=== PATIENT | female | born 1975 | race African-American/Black ===

== ENCOUNTER 2016-09-27 06:56 | Inpatient (IN) | payer MEDICAID ==
[~2016-09-27] VITALS: Ht 160 cm; Wt 130.0 kg
[~2016-09-27 06:56] MED LIST: AML5T PO; ASPI-378 PO; LISI-285 PO; NITR0.4S29 SL; OMEP20CA5 PO; SIMV-8 PO
[2016-09-27] MEDS ORDERED: SODIUM CHLORIDE 0.9% 1,000 ML IV ONE (07:42)
[2016-09-27] MEDS ORDERED: MORPHINE SULF INJ 2 MG/ML SYRINGE 1ML IV ONE (07:45)
[2016-09-27] MEDS ORDERED: LORazepam 2MG/ML-1ML VIAL IV ONE (07:45)
[2016-09-27] MEDS ORDERED: ONDANSETRON HCL 4 MG/2 ML VIAL IV ONE (07:45)
[2016-09-27 08:22] LABS: Basophils # (auto) 0 uL; Eosinophils # (auto) 0.1 uL; Eosinophils % (auto) 1.5 % (0.0-7.0); Hematocrit 41.5 % (36.0-46.0); Lymphocytes # (auto) 2.3 uL; Lymphocytes % (auto) 23.4 % (10.0-50.0); Mean Corpuscular Hemoglobin 31.4 pg (28.0-32.0); Mean Corpuscular Hgb Conc. 33.8 g/dL (32.0-36.0); Mean Corpuscular Volume 92.9 fL (80.0-100.0); Mean Platelet Volume 7.4 fL (7.4-10.4); Monocytes # (auto) 0.5 uL; Monocytes % (auto) 5.5 % (0.0-12.0); Neutrophils # (auto) 6.9 uL; Neutrophils % (auto) 69.6 % (37.0-80.0); Platelet Count (auto) 291 10^3/uL (140-450); Red Cell Distribution Width 13.6 % (11.6-16.0); White Blood Cell 9.9 10^3/uL (4.4-10.8)
[2016-09-27 08:26] LABS: INR 0.97 (0.9-1.15); Partial Thromboplastin Time 24.7 sec (22.64-33.71)
[2016-09-27] MEDS ORDERED: cloNIDine HCL 0.1 MG TAB PO ONE (08:30)
[2016-09-27] MEDS: SODIUM CHLORIDE 0.9% 1,000 ML IV SCH ×2 (08:30→13:49)
[2016-09-27 08:36] LABS: BUN/Creatinine Ratio 16.3; Bilirubin, Total 0.3 mg/dL (0.2-1.0); Calcium 8.5 mg/dL (8.5-10.1); Magnesium 2.2 mg/dL (1.6-2.6); Potassium 3.9 mmol/L (3.5-5.1); Total Protein 7.4 g/dL (6.4-8.2)
[2016-09-27] MEDS ORDERED: NITROGLYCERIN 0.4 MG SL TAB SL PRN (08:45)
[2016-09-27] MEDS ORDERED: LORazepam 0.5 MG TAB PO PRN (08:45)
[2016-09-27] MEDS ORDERED: TEMAZEPAM 15 MG CAP PO PRN (08:45)
[2016-09-27] MEDS ORDERED: LACTULOSE 20Gm/30ML SOLN PO PRN (08:45)
[2016-09-27] MEDS ORDERED: ACETAMINOPHEN 500 MG TAB PO PRN (08:45)
[2016-09-27] MEDS ORDERED: MORPHINE SULF INJ 2 MG/ML SYRINGE 1ML IV PRN (08:45)
[2016-09-27] MEDS ORDERED: PROMETHAZINE HCL 25 MG/ML 1ML IV PRN (08:45)
[2016-09-27] MEDS ORDERED: CLON0.1T PO (09:16)
[2016-09-27] MEDS ORDERED: ASPI1CAP PO (09:16)
[2016-09-27] MEDS ORDERED: OMEP20CA5 PO (09:18)
[2016-09-27] MEDS ORDERED: LISI40TA PO (09:18)
[2016-09-27] MEDS ORDERED: TEMA30CA PO (09:18)
[2016-09-27] MEDS ORDERED: MONT10TA34 PO (09:21)
[2016-09-27] MEDS ORDERED: GABA800T97 PO (09:21)
[2016-09-27] MEDS ORDERED: ALLO100T PO (09:21)
[2016-09-27] MEDS ORDERED: PRE1T PO (09:21)
[2016-09-27] MEDS ORDERED: ALBUAER3 IN (09:25)
[2016-09-27] MEDS ORDERED: ALBU2TAB4 PO (09:25)
[2016-09-27] MEDS: ASPirin 81 mg TAB PO SCH (10:00)
[2016-09-27] MEDS ORDERED: OMEPRAZOLE 20MG/10ML ORAL SUSP PO SCH (10:00)
[2016-09-27] MEDS ORDERED: PATIENTS OWN MEDICATION (Lisinopril & Hydrochlorothiazi (Lisinopril/Hydrochlorothi) 1 TAB) PO SCH (10:00)
[2016-09-27] MEDS: amLODIPine BESYLATE 5 MG TAB PO SCH (10:30)
[2016-09-27] MEDS: METOPROLOL TARTRATE 25 MG TAB PO SCH ×2 (10:30→22:00)
[2016-09-27] MEDS: PANTOPRAZOLE 40 MG TAB PO SCH (10:31)
[2016-09-27] MEDS: LISINOPRIL 20 MG TAB PO SCH ×2 (10:31→22:00)
[2016-09-27] MEDS: NITROGLYCERIN 0.2MG/HR TOPICAL PATCH TD SCH (10:32)
[2016-09-27 11:21] LABS: B-Type Natriuretic Peptide 268.99 pg/mL (0-100); Temperature: 23.5 C (20.0-25.0)
[2016-09-27] MEDS ORDERED: ENOXAPARIN SOD 120 MG/0.8 ML SYRINGE SC ONE (13:45)
[2016-09-27] MEDS: HYDROcodone-ACET 5/325MG TAB PO PRN (17:58)
[2016-09-27] MEDS ORDERED: NITROGLYCERIN 50MG/250ML 250 ML IV SCH (18:45)
[2016-09-27] MEDS: MORPHINE SULF INJ 2 MG/ML SYRINGE 1ML IV PRN (20:03)
[2016-09-27] MEDS: ATORVASTATIN 20 MG TAB PO SCH (22:14)
[2016-09-27] MEDS: ENOXAPARIN SOD 120 MG/0.8 ML SYRINGE SC SCH (22:14)
[2016-09-28] MEDS: MORPHINE SULF INJ 2 MG/ML SYRINGE 1ML IV PRN ×3 (01:13→20:23)
[2016-09-28 04:13] LABS: Basophils # (auto) 0 uL; Basophils % (auto) 0.4 % (0.0-2.0); Eosinophils # (auto) 0.2 uL; Eosinophils % (auto) 2.7 % (0.0-7.0); Hematocrit 39.1 % (36.0-46.0); Lymphocytes # (auto) 2.7 uL; Lymphocytes % (auto) 29.5 % (10.0-50.0); Mean Corpuscular Hemoglobin 30.9 pg (28.0-32.0); Mean Corpuscular Hgb Conc. 33.3 g/dL (32.0-36.0); Mean Corpuscular Volume 92.8 fL (80.0-100.0); Mean Platelet Volume 7.5 fL (7.4-10.4); Monocytes # (auto) 0.5 uL; Neutrophils # (auto) 5.8 uL; Neutrophils % (auto) 62.4 % (37.0-80.0); Platelet Count (auto) 287 10^3/uL (140-450); Red Cell Distribution Width 13.5 % (11.6-16.0); White Blood Cell 9.3 10^3/uL (4.4-10.8)
[2016-09-28 04:20] VITALS: BP 137/64
[2016-09-28] MEDS: HYDROcodone-ACET 5/325MG TAB PO PRN (04:34)
[2016-09-28 04:35] LABS: Albumin 2.9 g/dL (3.4-5.0); BUN/Creatinine Ratio 13.8; Bilirubin, Total 0.4 mg/dL (0.2-1.0); Calcium 8.4 mg/dL (8.5-10.1); Potassium 4.1 mmol/L (3.5-5.1); Total Protein 6.5 g/dL (6.4-8.2)
[2016-09-28 05:39] VITALS: BP 137/64
[2016-09-28 07:44] VITALS: BP 154/66
[2016-09-28] MEDS: ASPirin 81 mg TAB PO SCH (09:54)
[2016-09-28] MEDS: amLODIPine BESYLATE 5 MG TAB PO SCH (09:55)
[2016-09-28] MEDS: PANTOPRAZOLE 40 MG TAB PO SCH (09:55)
[2016-09-28] MEDS: METOPROLOL TARTRATE 25 MG TAB PO SCH ×2 (09:55→21:20)
[2016-09-28] MEDS: LISINOPRIL 20 MG TAB PO SCH ×2 (09:55→21:21)
[2016-09-28] MEDS: NITROGLYCERIN 0.2MG/HR TOPICAL PATCH TD SCH (09:56)
[2016-09-28] MEDS: ENOXAPARIN SOD 120 MG/0.8 ML SYRINGE SC SCH ×2 (09:56→21:21)
[2016-09-28] MEDS ORDERED: FUROSEMIDE 40 MG/4 ML VIAL IV ONE (11:45)
[2016-09-28] MEDS ORDERED: POTASSIUM CHL 20 Meq TABLET PO ONE (11:45)
[2016-09-28 11:54] VITALS: BP 149/76
[2016-09-28] MEDS ORDERED: IOHEXOL 350 MG/ML 100ML IJ ONE (15:02)
[2016-09-28] MEDS ORDERED: NITROGLYCERIN 0.4 MG SL TAB SL ONE (15:07)
[2016-09-28] MEDS ORDERED: METOPROLOL TARTRATE 1MG/1ML-5ML VIAL IV ONE (15:07)
[2016-09-28 16:00] VITALS: BP 156/44
[2016-09-28] MEDS ORDERED: hydrALAZINE HCL 20 MG/ML VL IV PRN (16:15)
[2016-09-28] MEDS: cloNIDine HCL 0.1 MG TAB PO SCH ×2 (17:50→21:20)
[2016-09-28] MEDS ORDERED: ONDANSETRON HCL 4 MG/2 ML VIAL IV PRN (18:15)
[2016-09-28] MEDS: ATORVASTATIN 20 MG TAB PO SCH (21:21)
[2016-09-28] MEDS: SODIUM CHLORIDE 0.9% 1,000 ML IV SCH (21:26)
[2016-09-28 22:00] VITALS: BP 135/67
[2016-09-29 05:00] VITALS: BP 126/81
[2016-09-29] MEDS: cloNIDine HCL 0.1 MG TAB PO SCH ×2 (05:20→14:00)
[2016-09-29] MEDS: MORPHINE SULF INJ 2 MG/ML SYRINGE 1ML IV PRN (05:21)
[2016-09-29 07:54] LABS: Basophils # (auto) 0 uL; Basophils % (auto) 0.4 % (0.0-2.0); Eosinophils # (auto) 0.1 uL; Hematocrit 45.9 % (36.0-46.0); Hemoglobin 15.4 g/dL (12.2-16.2); Lymphocytes % (auto) 19.3 % (10.0-50.0); Mean Corpuscular Hemoglobin 30.8 pg (28.0-32.0); Mean Corpuscular Hgb Conc. 33.5 g/dL (32.0-36.0); Mean Corpuscular Volume 91.9 fL (80.0-100.0); Mean Platelet Volume 7.6 fL (7.4-10.4); Monocytes # (auto) 0.6 uL; Monocytes % (auto) 6.1 % (0.0-12.0); Neutrophils # (auto) 7.6 uL; Neutrophils % (auto) 73.2 % (37.0-80.0); Platelet Count (auto) 314 10^3/uL (140-450); Red Cell Distribution Width 13.6 % (11.6-16.0); White Blood Cell 10.4 10^3/uL (4.4-10.8)
[2016-09-29 07:59] LABS: INR 1.08 (0.9-1.15); Prothrombin Time 11.1 sec (9.37-12.3)
[2016-09-29 08:16] LABS: BUN/Creatinine Ratio 14.1; Calcium 9.2 mg/dL (8.5-10.1); Magnesium 2.3 mg/dL (1.6-2.6); Potassium 3.6 mmol/L (3.5-5.1)
[2016-09-29 08:30] VITALS: BP_SYST 126; BP_SYST 98; BP_DIAS 62; BP_DIAS 70
[2016-09-29] MEDS: METOPROLOL TARTRATE 25 MG TAB PO SCH (09:39)
[2016-09-29] MEDS: ASPirin 81 mg TAB PO SCH (09:39)
[2016-09-29] MEDS: LISINOPRIL 20 MG TAB PO SCH (09:40)
[2016-09-29] MEDS: ENOXAPARIN SOD 120 MG/0.8 ML SYRINGE SC SCH (09:40)
[2016-09-29] MEDS: amLODIPine BESYLATE 5 MG TAB PO SCH (09:40)
[2016-09-29] MEDS: PANTOPRAZOLE 40 MG TAB PO SCH (09:40)
[2016-09-29] MEDS ORDERED: SIMV-8 PO (11:37)
[2016-09-29] MEDS: HYDROcodone-ACET 5/325MG TAB PO PRN (13:23)
[2016-09-29 13:51] VITALS: BP 126/70
[2016-09-29 14:08] VITALS: BP 139/76
== END 2016-09-29 15:00 | disposition home or self-care (01) | DRG 198 ==
LOC: ER 06:56 → EDBD 06:56 → TELE 06:57 → TELE-CENTR 09-28 04:15
PROVIDERS: ADMIT Internal Medicine; ATTEND Internal Medicine
DX: R07.89 Other chest pain (principal); I25.2 Old myocardial infarction; I50.33 Acute on chronic diastolic (congestive) heart failure; E66.01 Morbid (severe) obesity due to excess calories; J44.9 Chronic obstructive pulmonary disease, unspecified; I11.0 Hypertensive heart disease with heart failure; I25.10 Atherosclerotic heart disease of native coronary artery without angina pectoris; Z86.73 Personal history of transient ischemic attack (TIA), and cerebral infarction without residual deficits; E78.5 Hyperlipidemia, unspecified; Z87.442 Personal history of urinary calculi; F12.90 Cannabis use, unspecified, uncomplicated; F17.210 Nicotine dependence, cigarettes, uncomplicated; I25.119 Atherosclerotic heart disease of native coronary artery with unspecified angina pectoris; K80.20 Calculus of gallbladder without cholecystitis without obstruction; Z80.1 Family history of malignant neoplasm of trachea, bronchus and lung; Z81.8 Family history of other mental and behavioral disorders; Z82.49 Family history of ischemic heart disease and other diseases of the circulatory system; Z83.2 Family history of diseases of the blood and blood-forming organs and certain disorders involving the immune mechanism; Z98.51 Tubal ligation status; Z79.82 Long term (current) use of aspirin; Z90.49 Acquired absence of other specified parts of digestive tract; Z80.9 Family history of malignant neoplasm, unspecified
CPT/HCPCS: 36415; 71010; 80048; 80053; 80061; 82550; 83735; 83880; 84484; 84702; 85025; 85379; 85610; 85652; 85730; 86141; 93005; 96372; 96374; 96375; G0434; J2405

== ENCOUNTER 2016-10-02 02:30 | Observation (INO) | payer MEDICAID ==
[~2016-10-02] VITALS: Ht 160 cm; Wt 126.1 kg
[~2016-10-02 02:30] MED LIST changes: +ALBU2TAB4 PO; +ALBUAER3 IN; +ALLO100T PO; +ASPI1CAP PO; +CLON0.1T PO; +GABA800T97 PO; +LISI40TA PO; +MONT10TA34 PO; +PRE1T PO; +TEMA30CA PO
[2016-10-02 03:04] LABS: Basophils # (auto) 0.1 uL; Basophils % (auto) 1.1 % (0.0-2.0); Eosinophils # (auto) 0.3 uL; Eosinophils % (auto) 2.6 % (0.0-7.0); Hematocrit 42.3 % (36.0-46.0); Hemoglobin 14.1 g/dL (12.2-16.2); Lymphocytes # (auto) 2.7 uL; Lymphocytes % (auto) 25.6 % (10.0-50.0); Mean Corpuscular Hemoglobin 30.7 pg (28.0-32.0); Mean Corpuscular Hgb Conc. 33.3 g/dL (32.0-36.0); Mean Corpuscular Volume 92.4 fL (80.0-100.0); Mean Platelet Volume 7.3 fL (7.4-10.4); Monocytes % (auto) 9.8 % (0.0-12.0); Neutrophils # (auto) 6.5 uL; Neutrophils % (auto) 60.9 % (37.0-80.0); Platelet Count (auto) 306 10^3/uL (140-450); Red Cell Distribution Width 13.7 % (11.6-16.0); White Blood Cell 10.7 10^3/uL (4.4-10.8)
[2016-10-02] MEDS ORDERED: ONDANSETRON HCL 4 MG/2 ML VIAL IV ONE (03:15)
[2016-10-02] MEDS ORDERED: HYDROmorphone HCL 2 MG/ML VL IV ONE (03:15)
[2016-10-02 03:24] LABS: Anion Gap 9 (5-15); Aspartate Aminotransferase 15 U/L (15-37); BUN/Creatinine Ratio 20.4; Blood Urea Nitrogen 23 mg/dL (7-18); Calcium 8.2 mg/dL (8.5-10.1); Carbon Dioxide 23 mmol/L (21-32); Chloride 108 mmol/L (98-107); GFR African American 69 mL/min; GFR Non-African American 57 mL/min; Glucose 96 mg/dL (74-106); Magnesium 2.5 mg/dL (1.6-2.6); Potassium 3.8 mmol/L (3.5-5.1); Sodium 140 mmol/L (136-145)
[2016-10-02 03:29] LABS: Alkaline Phosphatase 67 U/L (45-117); Bilirubin, Total 0.4 mg/dL (0.2-1.0); Total Protein 6.8 g/dL (6.4-8.2)
[2016-10-02 03:30] LABS: INR 1.01 (0.9-1.15); Partial Thromboplastin Time 24.3 sec (22.64-33.71); Prothrombin Time 10.4 sec (9.37-12.3)
[2016-10-02 03:32] LABS: B-Type Natriuretic Peptide 17.59 pg/mL (0-100)
[2016-10-02 03:38] LABS: Temperature: 22.3 C (20.0-25.0)
[2016-10-02 05:54] VITALS: BP 105/62
== END 2016-10-02 05:55 | disposition home or self-care (01) | DRG 198 ==
LOC: EDBD 02:30 → ER 02:32 → OVERFLOW 02:33 → UNDOADMOB 02:33 → OVERFLOW 03:16 → UNDODISOB 05:55 → ER 05:55
PROVIDERS: ADMIT Emergency Medicine; ATTEND Emergency Medicine
DX: R07.2 Precordial pain (principal); I25.2 Old myocardial infarction; I11.0 Hypertensive heart disease with heart failure; I50.9 Heart failure, unspecified; I25.10 Atherosclerotic heart disease of native coronary artery without angina pectoris; I20.9 Angina pectoris, unspecified; J44.9 Chronic obstructive pulmonary disease, unspecified; E78.5 Hyperlipidemia, unspecified; K29.70 Gastritis, unspecified, without bleeding; K42.9 Umbilical hernia without obstruction or gangrene; F17.210 Nicotine dependence, cigarettes, uncomplicated
CPT/HCPCS: 36415; 71010; 74176; 80053; 83690; 83735; 83880; 84443; 84484; 84702; 85025; 85610; 85730; 93005; 96374; 96375; 99285; G0378; J1170; J2405

== ENCOUNTER 2016-12-03 08:01 | Inpatient (IN) | payer MEDICAID ==
[~2016-12-03] VITALS: Ht 160 cm; Wt 132.6 kg
[~2016-12-03 08:01] MED LIST changes: -AML5T PO
[2016-12-03 09:05] LABS: Basophils # (auto) 0 uL; Basophils % (auto) 0.3 % (0.0-2.0); Eosinophils # (auto) 0.2 uL; Eosinophils % (auto) 2.1 % (0.0-7.0); Hematocrit 44.1 % (36.0-46.0); Lymphocytes # (auto) 3.3 uL; Lymphocytes % (auto) 27.7 % (10.0-50.0); Mean Corpuscular Hemoglobin 31.4 pg (28.0-32.0); Mean Corpuscular Hgb Conc. 33.9 g/dL (32.0-36.0); Mean Corpuscular Volume 92.3 fL (80.0-100.0); Mean Platelet Volume 7.9 fL (7.4-10.4); Monocytes # (auto) 0.8 uL; Monocytes % (auto) 7.1 % (0.0-12.0); Neutrophils # (auto) 7.4 uL; Neutrophils % (auto) 62.8 % (37.0-80.0); Platelet Count (auto) 301 10^3/uL (140-450); Red Cell Distribution Width 14.2 % (11.6-16.0); White Blood Cell 11.8 10^3/uL (4.4-10.8)
[2016-12-03 09:21] LABS: Albumin 3.3 g/dL (3.4-5.0); Alkaline Phosphatase 97 U/L (45-117); Anion Gap 9 (5-15); Aspartate Aminotransferase 13 U/L (15-37); BUN/Creatinine Ratio 16.3; Bilirubin, Total 0.2 mg/dL (0.2-1.0); Blood Urea Nitrogen 16 mg/dL (7-18); Carbon Dioxide 22 mmol/L (21-32); Chloride 108 mmol/L (98-107); GFR African American 81 mL/min; GFR Non-African American 67 mL/min; Glucose 100 mg/dL (74-106); Potassium 4.3 mmol/L (3.5-5.1); Sodium 139 mmol/L (136-145); Total Protein 7.7 g/dL (6.4-8.2)
[2016-12-03 10:18] LABS: Partial Thromboplastin Time 22.9 sec (22.64-33.71)
[2016-12-03] MEDS ORDERED: ASPirin 81 mg TAB PO ONE (10:30)
[2016-12-03] MEDS ORDERED: KETOROLAC TROMETH 60MG/2ML VIAL IM ONE (10:30)
[2016-12-03] MEDS ORDERED: NITROGLYCERIN 0.2MG/HR TOPICAL PATCH TD ONE (10:45)
[2016-12-03] MEDS ORDERED: LORazepam 0.5 MG TAB PO ONE (10:45)
[2016-12-03 11:29] LABS: B-Type Natriuretic Peptide 12.5 pg/mL (0-100); Temperature: 24.5 C (20.0-25.0)
[2016-12-03 13:49] LABS: INR 0.83 (0.9-1.15); Prothrombin Time 9.4 sec (9.37-12.3)
[2016-12-03] MEDS ORDERED: ONDANSETRON HCL 4 MG/2 ML VIAL IV ONE (14:15)
[2016-12-03] MEDS ORDERED: MORPHINE SULFATE 4 MG/ML SYRG IV ONE (14:15)
[2016-12-03] MEDS ORDERED: cefTRIAXone 1GM/50ML D5W 50 ML IV ONE (15:00)
[2016-12-03] MEDS ORDERED: cloNIDine HCL 0.1 MG TAB PO PRN (15:15)
[2016-12-03] MEDS ORDERED: DOCUSATE SOD 100 MG CAP PO PRN (15:30)
[2016-12-03] MEDS ORDERED: TEMAZEPAM 15 MG CAP PO PRN (15:30)
[2016-12-03] MEDS ORDERED: ACETAMINOPHEN 325 MG TAB PO PRN (15:30)
[2016-12-03] MEDS: BOOST PLUS 8 ounce PO SCH (18:00)
[2016-12-03] MEDS: ONDANSETRON HCL 4 MG/2 ML VIAL IV PRN (18:21)
[2016-12-03] MEDS: MORPHINE SULF INJ 2 MG/ML SYRINGE 1ML IV PRN (18:21)
[2016-12-03] MEDS: IPRATROPIUM BROM 0.5 MG/2.5ML INH SOL NEB SCH (19:04)
[2016-12-03] MEDS: ALBUTEROL SULF 2.5 MG/0.5ML(0.5%) NEB SOLN NEB SCH (19:04)
[2016-12-03 19:25] VITALS: BP 163/73
[2016-12-03] MEDS: HYDROcodone-ACET 5/325MG TAB PO PRN (20:36)
[2016-12-03] MEDS: ASPIRIN-DIPYRIDAMOLE (25/200MG) CAPSULE PO SCH (21:40)
[2016-12-03] MEDS: ATORVASTATIN 20 MG TAB PO SCH (21:40)
[2016-12-03] MEDS: cloNIDine HCL 0.1 MG TAB PO SCH (21:41)
[2016-12-03] MEDS: SODIUM CHLOR 0.9% PF (SALINE LOCK) 10ML VIAL IV SCH (21:41)
[2016-12-03] MEDS ORDERED: FAMOTIDINE 20 MG TAB PO SCH (22:00)
[2016-12-04] MEDS: ALBUTEROL SULF 2.5 MG/0.5ML(0.5%) NEB SOLN NEB SCH ×4 (00:46→19:11)
[2016-12-04] MEDS: IPRATROPIUM BROM 0.5 MG/2.5ML INH SOL NEB SCH ×4 (00:46→19:11)
[2016-12-04] MEDS: MORPHINE SULF INJ 2 MG/ML SYRINGE 1ML IV PRN ×4 (01:05→21:35)
[2016-12-04 01:39] VITALS: BP 163/73
[2016-12-04 05:00] VITALS: BP 134/64
[2016-12-04] MEDS: cloNIDine HCL 0.1 MG TAB PO SCH ×3 (05:57→22:21)
[2016-12-04] MEDS: SODIUM CHLOR 0.9% PF (SALINE LOCK) 10ML VIAL IV SCH ×3 (05:57→22:20)
[2016-12-04 06:17] LABS: Basophils # (auto) 0 uL; Basophils % (auto) 0.4 % (0.0-2.0); Eosinophils # (auto) 0.3 uL; Eosinophils % (auto) 3.1 % (0.0-7.0); Hematocrit 36.7 % (36.0-46.0); Hemoglobin 12.4 g/dL (12.2-16.2); Lymphocytes # (auto) 2.7 uL; Lymphocytes % (auto) 32.3 % (10.0-50.0); Mean Corpuscular Hemoglobin 31.4 pg (28.0-32.0); Mean Corpuscular Hgb Conc. 33.6 g/dL (32.0-36.0); Mean Corpuscular Volume 93.3 fL (80.0-100.0); Mean Platelet Volume 7.9 fL (7.4-10.4); Monocytes # (auto) 0.5 uL; Monocytes % (auto) 6.4 % (0.0-12.0); Neutrophils # (auto) 4.8 uL; Neutrophils % (auto) 57.8 % (37.0-80.0); Platelet Count (auto) 262 10^3/uL (140-450); White Blood Cell 8.3 10^3/uL (4.4-10.8)
[2016-12-04 06:34] LABS: Albumin 2.4 g/dL (3.4-5.0); Calcium 8.2 mg/dL (8.5-10.1)
[2016-12-04 06:37] LABS: BUN/Creatinine Ratio 21.7
[2016-12-04 06:40] LABS: Bilirubin, Total 0.4 mg/dL (0.2-1.0)
[2016-12-04] MEDS: BOOST PLUS 8 ounce PO SCH ×3 (08:00→18:15)
[2016-12-04 09:00] VITALS: BP 134/74
[2016-12-04] MEDS: cefTRIAXone 1GM/50ML D5W 50 ML IV SCH (09:32)
[2016-12-04] MEDS: ASPIRIN-DIPYRIDAMOLE (25/200MG) CAPSULE PO SCH ×2 (11:16→22:20)
[2016-12-04] MEDS: MULTIPLE VITAMIN TAB PO SCH (11:17)
[2016-12-04] MEDS: LISINOPRIL 20 MG TAB PO SCH (11:17)
[2016-12-04] MEDS: PANTOPRAZOLE 40 MG TAB PO SCH (11:17)
[2016-12-04] MEDS: ALLOPURINOL 100 MG TAB PO SCH (11:17)
[2016-12-04] MEDS: MONTELUKAST SODIUM 10 MG TAB PO SCH (11:18)
[2016-12-04] MEDS: predniSONE 20 MG TAB PO SCH (11:18)
[2016-12-04 13:00] VITALS: BP 161/75
[2016-12-04] MEDS: HYDROcodone-ACET 5/325MG TAB PO PRN (13:06)
[2016-12-04] MEDS: ONDANSETRON HCL 4 MG/2 ML VIAL IV PRN (15:24)
[2016-12-04 17:00] VITALS: BP 141/73
[2016-12-04 22:00] VITALS: BP 180/77
[2016-12-04] MEDS: ATORVASTATIN 20 MG TAB PO SCH (22:21)
[2016-12-05] MEDS: MORPHINE SULF INJ 2 MG/ML SYRINGE 1ML IV PRN ×4 (03:49→22:14)
[2016-12-05] MEDS: ONDANSETRON HCL 4 MG/2 ML VIAL IV PRN ×2 (03:49→09:01)
[2016-12-05 05:00] VITALS: BP 121/59
[2016-12-05] MEDS: SODIUM CHLOR 0.9% PF (SALINE LOCK) 10ML VIAL IV SCH ×3 (05:39→21:18)
[2016-12-05] MEDS: cloNIDine HCL 0.1 MG TAB PO SCH ×3 (05:40→21:18)
[2016-12-05] MEDS: IPRATROPIUM BROM 0.5 MG/2.5ML INH SOL NEB SCH ×4 (06:28→20:45)
[2016-12-05] MEDS: ALBUTEROL SULF 2.5 MG/0.5ML(0.5%) NEB SOLN NEB SCH ×4 (06:28→20:45)
[2016-12-05] MEDS: BOOST PLUS 8 ounce PO SCH ×3 (08:00→18:13)
[2016-12-05 08:10] VITALS: BP 134/76
[2016-12-05] MEDS: HYDROcodone-ACET 5/325MG TAB PO PRN (09:00)
[2016-12-05] MEDS: cefTRIAXone 1GM/50ML D5W 50 ML IV SCH (09:47)
[2016-12-05] MEDS: ASPIRIN-DIPYRIDAMOLE (25/200MG) CAPSULE PO SCH ×2 (09:48→21:18)
[2016-12-05] MEDS: ALLOPURINOL 100 MG TAB PO SCH (09:48)
[2016-12-05] MEDS: MONTELUKAST SODIUM 10 MG TAB PO SCH (09:50)
[2016-12-05] MEDS: LISINOPRIL 20 MG TAB PO SCH (09:50)
[2016-12-05] MEDS: PANTOPRAZOLE 40 MG TAB PO SCH (09:51)
[2016-12-05] MEDS: predniSONE 20 MG TAB PO SCH (09:51)
[2016-12-05] MEDS: MULTIPLE VITAMIN TAB PO SCH (09:51)
[2016-12-05 11:48] VITALS: BP 172/94
[2016-12-05 16:28] VITALS: BP 140/82
[2016-12-05] MEDS: ATORVASTATIN 20 MG TAB PO SCH (21:17)
[2016-12-05] MEDS: DOXYCYCLINE 100 MG TAB/CAP PO SCH (21:19)
[2016-12-06] MEDS: ONDANSETRON HCL 4 MG/2 ML VIAL IV PRN ×2 (00:11→12:23)
[2016-12-06 05:22] VITALS: BP 123/52
[2016-12-06] MEDS: SODIUM CHLOR 0.9% PF (SALINE LOCK) 10ML VIAL IV SCH ×2 (05:27→14:00)
[2016-12-06] MEDS: cloNIDine HCL 0.1 MG TAB PO SCH ×2 (05:28→14:00)
[2016-12-06] MEDS: MORPHINE SULF INJ 2 MG/ML SYRINGE 1ML IV PRN ×2 (05:41→12:23)
[2016-12-06] MEDS: ALBUTEROL SULF 2.5 MG/0.5ML(0.5%) NEB SOLN NEB SCH ×3 (06:46→12:00)
[2016-12-06] MEDS: IPRATROPIUM BROM 0.5 MG/2.5ML INH SOL NEB SCH ×3 (06:46→12:00)
[2016-12-06] MEDS: BOOST PLUS 8 ounce PO SCH ×2 (08:00→12:00)
[2016-12-06 08:05] VITALS: BP 155/76
[2016-12-06] MEDS: DOXYCYCLINE 100 MG TAB/CAP PO SCH (09:51)
[2016-12-06] MEDS: PANTOPRAZOLE 40 MG TAB PO SCH (09:51)
[2016-12-06] MEDS: MULTIPLE VITAMIN TAB PO SCH (09:51)
[2016-12-06] MEDS: ASPIRIN-DIPYRIDAMOLE (25/200MG) CAPSULE PO SCH (09:51)
[2016-12-06] MEDS: ALLOPURINOL 100 MG TAB PO SCH (09:51)
[2016-12-06] MEDS: MONTELUKAST SODIUM 10 MG TAB PO SCH (09:52)
[2016-12-06] MEDS ORDERED: predniSONE 20 MG TAB PO SCH (10:00)
[2016-12-06 11:27] VITALS: BP 143/75
[2016-12-06 13:30] VITALS: BP 143/75
== END 2016-12-06 14:30 | disposition home or self-care (01) | DRG 140 ==
LOC: ER 08:01 → TELE 08:02 → TELE-WESTW 18:30
PROVIDERS: ADMIT Internal Medicine; ATTEND Internal Medicine Pulmonary Disease
DX: J44.0 Chronic obstructive pulmonary disease with (acute) lower respiratory infection (principal); D68.9 Coagulation defect, unspecified; E44.0 Moderate protein-calorie malnutrition; I13.0 Hypertensive heart and chronic kidney disease with heart failure and stage 1 through stage 4 chronic kidney disease, or unspecified chronic kidney disease; E11.22 Type 2 diabetes mellitus with diabetic chronic kidney disease; J45.901 Unspecified asthma with (acute) exacerbation; I50.42 Chronic combined systolic (congestive) and diastolic (congestive) heart failure; Z68.43 Body mass index [BMI] 50.0-59.9, adult; J20.9 Acute bronchitis, unspecified; E66.01 Morbid (severe) obesity due to excess calories; E78.5 Hyperlipidemia, unspecified; F17.210 Nicotine dependence, cigarettes, uncomplicated; K21.9 Gastro-esophageal reflux disease without esophagitis; J44.1 Chronic obstructive pulmonary disease with (acute) exacerbation; F12.90 Cannabis use, unspecified, uncomplicated; E66.9 Obesity, unspecified; N18.2 Chronic kidney disease, stage 2 (mild); I25.119 Atherosclerotic heart disease of native coronary artery with unspecified angina pectoris; Z86.73 Personal history of transient ischemic attack (TIA), and cerebral infarction without residual deficits; Z87.442 Personal history of urinary calculi; Z90.49 Acquired absence of other specified parts of digestive tract; Z98.51 Tubal ligation status; Z82.49 Family history of ischemic heart disease and other diseases of the circulatory system
CPT/HCPCS: 36415; 71020; 80053; 82270; 83880; 84484; 85025; 85379; 85610; 85730; 87070; 87205; 93005; 94640; 94761; 96365; 96372; 96375; J0696; J1885; J2405

== ENCOUNTER 2017-01-14 13:03 | Inpatient (IN) | payer MEDICAID ==
[~2017-01-14] VITALS: Ht 160 cm; Wt 134.2 kg
[~2017-01-14 13:03] MED LIST changes: -ALBU2TAB4 PO; -LISI-285 PO; -LISI40TA PO; -OMEP20CA5 PO; +OMEP20CA74 PO
[2017-01-14] MEDS ORDERED: cloNIDine HCL 0.1 MG TAB PO ONE (13:30)
[2017-01-14 13:54] LABS: Basophils # (auto) 0.1 uL; Basophils % (auto) 0.6 % (0.0-2.0); CONDITION Y; Eosinophils # (auto) 0.2 uL; Eosinophils % (auto) 1.9 % (0.0-7.0); Hematocrit 44.9 % (36.0-46.0); Hemoglobin 15.1 g/dL (12.2-16.2); Lymphocytes % (auto) 23.8 % (10.0-50.0); Mean Corpuscular Hemoglobin 31.1 pg (28.0-32.0); Mean Corpuscular Hgb Conc. 33.5 g/dL (32.0-36.0); Mean Corpuscular Volume 92.7 fL (80.0-100.0); Mean Platelet Volume 7.3 fL (7.4-10.4); Monocytes # (auto) 0.3 uL; Neutrophils % (auto) 71.7 % (37.0-80.0); Platelet Count (auto) 343 10^3/uL (140-450); Red Cell Distribution Width 14.1 % (11.6-16.0); White Blood Cell 12.6 10^3/uL (4.4-10.8)
[2017-01-14 14:12] LABS: Albumin 3.3 g/dL (3.4-5.0); BUN/Creatinine Ratio 12.6; Bilirubin, Total 0.4 mg/dL (0.2-1.0); Calcium 8.7 mg/dL (8.5-10.1); Potassium 3.9 mmol/L (3.5-5.1); Total Protein 7.2 g/dL (6.4-8.2)
[2017-01-14] MEDS ORDERED: PANTOPRAZOLE SODIUM 40 MG/10 ML VIAL IV STA (14:21)
[2017-01-14] MEDS ORDERED: SODIUM CHLORIDE 0.9% 1,000 ML IVB ONE (14:21)
[2017-01-14] MEDS ORDERED: MORPHINE SULFATE 4 MG/ML SYRG IV ONE (14:30)
[2017-01-14] MEDS ORDERED: ONDANSETRON HCL 4 MG/2 ML VIAL IV ONE (14:30)
[2017-01-14 14:56] LABS: Urine Bilirubin Negative (Negative); Urine Blood TRACE /uL (Negative); Urine Color Yellow (Yellow); Urine Glucose Normal (Normal); Urine Ketone Negative (Negative); Urine Nitrite Negative (Negative); Urine RBC 1 /hpf (0 - 4); Urine Squamous Epithelial Cell MOD /hpf (<5); Urine Urobilinogen Normal (Negative); Urine pH 5.5 (5.0-8.0)
[2017-01-14] MEDS ORDERED: cefTRIAXone 1GM/50ML D5W 50 ML IV ONE (16:30)
[2017-01-14] MEDS ORDERED: cloNIDine HCL 0.1 MG TAB PO PRN (17:00)
[2017-01-14] MEDS ORDERED: ACETAMINOPHEN 325 MG TAB PO PRN (17:15)
[2017-01-14] MEDS ORDERED: predniSONE 20 MG TAB PO ONE (17:15)
[2017-01-14] MEDS ORDERED: ALLOPURINOL 300 MG TAB PO ONE (17:15)
[2017-01-14] MEDS ORDERED: MONTELUKAST SODIUM 10 MG TAB PO ONE (17:15)
[2017-01-14 17:58] LABS: INR 0.91 (0.9-1.15); Prothrombin Time 9.9 sec (9.37-12.3)
[2017-01-14] MEDS: BUDESONIDE (INHALATION) 0.5 MG/2 ML NEB NEB SCH (18:12)
[2017-01-14] MEDS: LOSARTAN POTASSIUM 50 MG TAB PO SCH (18:16)
[2017-01-14] MEDS: ALBUTEROL SULF 2.5 MG/0.5ML(0.5%) NEB SOLN NEB SCH ×2 (18:25→22:17)
[2017-01-14] MEDS: IPRATROPIUM BROM 0.5 MG/2.5ML INH SOL NEB SCH ×2 (18:25→22:17)
[2017-01-14] MEDS: MORPHINE SULFATE 4 MG/ML SYRG IV PRN (20:38)
[2017-01-14] MEDS: ONDANSETRON HCL 4 MG/2 ML VIAL IV PRN (20:39)
[2017-01-14 21:15] VITALS: BP 133/76
[2017-01-14] MEDS ORDERED: FAMOTIDINE 20 MG TAB PO SCH (22:00)
[2017-01-14] MEDS: cloNIDine HCL 0.1 MG TAB PO SCH (22:12)
[2017-01-14] MEDS: metroNIDAZOLE 500MG/100ML 100 ML IV SCH (22:12)
[2017-01-14] MEDS: SODIUM CHLOR 0.9% PF (SALINE LOCK) 10ML VIAL IV SCH (22:12)
[2017-01-14] MEDS: ASCORBIC ACID 500 MG TAB PO SCH (22:13)
[2017-01-14] MEDS: GABAPENTIN 400 MG CAP PO SCH (22:13)
[2017-01-14 23:07] VITALS: BP 133/76
[2017-01-15] MEDS: IPRATROPIUM BROM 0.5 MG/2.5ML INH SOL NEB SCH ×6 (02:09→22:39)
[2017-01-15] MEDS: ALBUTEROL SULF 2.5 MG/0.5ML(0.5%) NEB SOLN NEB SCH ×6 (02:09→22:39)
[2017-01-15 03:16] VITALS: BP 133/76
[2017-01-15] MEDS: MORPHINE SULFATE 4 MG/ML SYRG IV PRN ×3 (04:10→20:41)
[2017-01-15 05:37] LABS: Basophils # (auto) 0 uL; Basophils % (auto) 0.4 % (0.0-2.0); CONDITION Y; Eosinophils # (auto) 0 uL; Eosinophils % (auto) 0.2 % (0.0-7.0); Hematocrit 39.4 % (36.0-46.0); Hemoglobin 13.1 g/dL (12.2-16.2); Lymphocytes # (auto) 1.9 uL; Lymphocytes % (auto) 16.3 % (10.0-50.0); Mean Corpuscular Hemoglobin 31.3 pg (28.0-32.0); Mean Corpuscular Hgb Conc. 33.3 g/dL (32.0-36.0); Mean Platelet Volume 7.6 fL (7.4-10.4); Monocytes # (auto) 0.5 uL; Neutrophils # (auto) 9.4 uL; Neutrophils % (auto) 79.1 % (37.0-80.0); Platelet Count (auto) 283 10^3/uL (140-450); Red Cell Distribution Width 13.9 % (11.6-16.0); White Blood Cell 11.9 10^3/uL (4.4-10.8)
[2017-01-15 06:07] LABS: Albumin 2.9 g/dL (3.4-5.0); BUN/Creatinine Ratio 11.5; Bilirubin, Total 0.4 mg/dL (0.2-1.0); Potassium 5.4 mmol/L (3.5-5.1); Total Protein 6.3 g/dL (6.4-8.2)
[2017-01-15] MEDS: metroNIDAZOLE 500MG/100ML 100 ML IV SCH ×3 (06:17→21:48)
[2017-01-15] MEDS: cloNIDine HCL 0.1 MG TAB PO SCH ×3 (06:18→21:49)
[2017-01-15] MEDS: SODIUM CHLOR 0.9% PF (SALINE LOCK) 10ML VIAL IV SCH ×3 (06:18→21:48)
[2017-01-15 08:00] VITALS: BP 133/61
[2017-01-15 08:22] VITALS: BP 133/61
[2017-01-15] MEDS: cefTRIAXone 1GM/50ML D5W 50 ML IV SCH (09:00)
[2017-01-15] MEDS ORDERED: MONTELUKAST SODIUM 10 MG TAB PO SCH (10:00)
[2017-01-15] MEDS ORDERED: ALLOPURINOL 300 MG TAB PO SCH (10:00)
[2017-01-15] MEDS: LOSARTAN POTASSIUM 50 MG TAB PO SCH ×2 (10:01→19:01)
[2017-01-15] MEDS: BUDESONIDE (INHALATION) 0.5 MG/2 ML NEB NEB SCH ×2 (10:21→22:39)
[2017-01-15] MEDS: PANTOPRAZOLE 40 MG TAB PO SCH (10:37)
[2017-01-15] MEDS: MULTIPLE VITAMIN TAB PO SCH (10:37)
[2017-01-15] MEDS: ASCORBIC ACID 500 MG TAB PO SCH ×2 (10:38→21:49)
[2017-01-15] MEDS: ZINC SULFATE 220 MG CAP PO SCH (10:38)
[2017-01-15] MEDS: GABAPENTIN 400 MG CAP PO SCH ×2 (10:38→21:49)
[2017-01-15] MEDS: predniSONE 20 MG TAB PO SCH (10:39)
[2017-01-15] MEDS: ONDANSETRON HCL 4 MG/2 ML VIAL IV PRN (12:32)
[2017-01-15 12:55] VITALS: BP 160/9
[2017-01-15] MEDS ORDERED: LORazepam 0.5 MG TAB ONE (15:04)
[2017-01-15] MEDS: LORazepam 0.5 MG TAB PO PRN (15:17)
[2017-01-15 16:45] VITALS: BP 136/60
[2017-01-15] MEDS ORDERED: predniSONE 1 MG TAB PO SCH (17:00)
[2017-01-15] MEDS: ATORVASTATIN 20 MG TAB PO SCH (21:49)
[2017-01-15] MEDS ORDERED: PATIENTS OWN MEDICATION (Gabapentin 800 MG) PO SCH ×2 (22:00)
[2017-01-15] MEDS ORDERED: OMEPRAZOLE 20MG/10ML ORAL SUSP PO SCH (22:00)
[2017-01-15 22:30] VITALS: BP 145/73
[2017-01-16] MEDS: TEMAZEPAM 15 MG CAP PO PRN (01:02)
[2017-01-16] MEDS: IPRATROPIUM BROM 0.5 MG/2.5ML INH SOL NEB SCH ×6 (02:45→22:00)
[2017-01-16] MEDS: ALBUTEROL SULF 2.5 MG/0.5ML(0.5%) NEB SOLN NEB SCH ×6 (02:45→22:00)
[2017-01-16 05:00] VITALS: BP 125/63
[2017-01-16] MEDS: cloNIDine HCL 0.1 MG TAB PO SCH ×3 (05:16→21:47)
[2017-01-16] MEDS: metroNIDAZOLE 500MG/100ML 100 ML IV SCH ×3 (05:16→22:00)
[2017-01-16] MEDS: SODIUM CHLOR 0.9% PF (SALINE LOCK) 10ML VIAL IV SCH ×3 (05:16→21:47)
[2017-01-16] MEDS: cefTRIAXone 1GM/50ML D5W 50 ML IV SCH (08:35)
[2017-01-16] MEDS: LOSARTAN POTASSIUM 50 MG TAB PO SCH ×2 (08:44→17:59)
[2017-01-16 09:12] LABS: Basophils # (auto) 0 uL; Basophils % (auto) 0.1 % (0.0-2.0); CONDITION Y; Eosinophils # (auto) 0.2 uL; Eosinophils % (auto) 1.3 % (0.0-7.0); Hematocrit 42.8 % (36.0-46.0); Hemoglobin 14.1 g/dL (12.2-16.2); Lymphocytes # (auto) 2.9 uL; Mean Corpuscular Hgb Conc. 32.9 g/dL (32.0-36.0); Mean Corpuscular Volume 94.2 fL (80.0-100.0); Mean Platelet Volume 7.5 fL (7.4-10.4); Monocytes # (auto) 0.7 uL; Monocytes % (auto) 5.2 % (0.0-12.0); Neutrophils # (auto) 9.4 uL; Neutrophils % (auto) 71.4 % (37.0-80.0); Platelet Count (auto) 333 10^3/uL (140-450); Red Cell Distribution Width 14.2 % (11.6-16.0); White Blood Cell 13.2 10^3/uL (4.4-10.8)
[2017-01-16 09:30] LABS: BUN/Creatinine Ratio 9.4; Calcium 9.1 mg/dL (8.5-10.1)
[2017-01-16] MEDS: BUDESONIDE (INHALATION) 0.5 MG/2 ML NEB NEB SCH ×2 (09:40→22:00)
[2017-01-16] MEDS: ALLOPURINOL 100 MG TAB PO SCH (10:00)
[2017-01-16] MEDS: PANTOPRAZOLE 40 MG TAB PO SCH (10:00)
[2017-01-16] MEDS: ZINC SULFATE 220 MG CAP PO SCH (10:00)
[2017-01-16] MEDS: MONTELUKAST SODIUM 10 MG TAB PO SCH (10:00)
[2017-01-16] MEDS: MULTIPLE VITAMIN TAB PO SCH (10:00)
[2017-01-16] MEDS: GABAPENTIN 400 MG CAP PO SCH ×2 (10:00→21:46)
[2017-01-16] MEDS: predniSONE 20 MG TAB PO SCH (10:00)
[2017-01-16] MEDS: ASCORBIC ACID 500 MG TAB PO SCH ×2 (10:00→21:47)
[2017-01-16] MEDS: MORPHINE SULFATE 4 MG/ML SYRG IV PRN ×2 (11:32→20:24)
[2017-01-16 12:30] VITALS: BP 158/79
[2017-01-16] MEDS: HYDROcodone-ACET 5/325MG TAB PO PRN (14:21)
[2017-01-16 16:41] VITALS: BP 111/56
[2017-01-16 20:00] VITALS: BP 144/78
[2017-01-16] MEDS: ONDANSETRON HCL 4 MG/2 ML VIAL IV PRN (20:35)
[2017-01-16] MEDS: ATORVASTATIN 20 MG TAB PO SCH (21:46)
[2017-01-16 22:00] VITALS: BP 144/78
[2017-01-17] MEDS: MORPHINE SULFATE 4 MG/ML SYRG IV PRN ×3 (00:46→21:01)
[2017-01-17] MEDS: ONDANSETRON HCL 4 MG/2 ML VIAL IV PRN ×2 (00:46→13:37)
[2017-01-17] MEDS: TEMAZEPAM 15 MG CAP PO PRN (02:00)
[2017-01-17] MEDS: IPRATROPIUM BROM 0.5 MG/2.5ML INH SOL NEB SCH ×7 (02:32→21:58)
[2017-01-17] MEDS: ALBUTEROL SULF 2.5 MG/0.5ML(0.5%) NEB SOLN NEB SCH ×7 (02:32→21:58)
[2017-01-17 05:30] VITALS: BP 136/88
[2017-01-17] MEDS: SODIUM CHLOR 0.9% PF (SALINE LOCK) 10ML VIAL IV SCH ×3 (06:02→21:45)
[2017-01-17] MEDS: metroNIDAZOLE 500MG/100ML 100 ML IV SCH ×3 (06:02→21:45)
[2017-01-17] MEDS: cloNIDine HCL 0.1 MG TAB PO SCH ×3 (06:03→21:46)
[2017-01-17 07:05] LABS: Basophils # (auto) 0.1 uL; Basophils % (auto) 0.9 % (0.0-2.0); CONDITION Y; Eosinophils # (auto) 0.3 uL; Eosinophils % (auto) 2.5 % (0.0-7.0); Hematocrit 41.9 % (36.0-46.0); Lymphocytes # (auto) 2.9 uL; Lymphocytes % (auto) 26.7 % (10.0-50.0); Mean Corpuscular Hemoglobin 31.1 pg (28.0-32.0); Mean Corpuscular Hgb Conc. 33.4 g/dL (32.0-36.0); Mean Corpuscular Volume 93.1 fL (80.0-100.0); Mean Platelet Volume 7.7 fL (7.4-10.4); Monocytes # (auto) 0.6 uL; Monocytes % (auto) 5.5 % (0.0-12.0); Neutrophils % (auto) 64.4 % (37.0-80.0); Platelet Count (auto) 296 10^3/uL (140-450); Red Cell Distribution Width 14.2 % (11.6-16.0); White Blood Cell 10.8 10^3/uL (4.4-10.8)
[2017-01-17 07:33] LABS: Calcium 8.7 mg/dL (8.5-10.1)
[2017-01-17 07:35] LABS: BUN/Creatinine Ratio 15.1
[2017-01-17] MEDS ORDERED: POVIDONE IODINE 10 % TOPICAL OINT 30GM TOP ONE (07:59)
[2017-01-17] MEDS: LOSARTAN POTASSIUM 50 MG TAB PO SCH ×2 (08:00→18:00)
[2017-01-17] MEDS ORDERED: ceFAZolin 1GM/50ML D5W 50 ML IV ONE (08:28)
[2017-01-17 09:00] VITALS: BP 138/66
[2017-01-17] MEDS ORDERED: MEPERIDINE HCL (50 MG/ML) 1 ML VIAL ONE (09:25)
[2017-01-17] MEDS ORDERED: fentaNYL CITRATE 100 MCG/2 ML VL ONE (09:25)
[2017-01-17] MEDS ORDERED: SUCCINYLCHOLINE CHLORIDE 20 MG/ML 10ML VIAL IV ONE (09:25)
[2017-01-17] MEDS ORDERED: MIDAZOLAM HCL 1MG/1ML-2 ML VIAL ONE (09:25)
[2017-01-17] MEDS ORDERED: DEXAMETHASONE SOD PHOS 10MG/1ML VIAL INJ ONE (09:36)
[2017-01-17] MEDS ORDERED: PROPOFOL 10 MG/ML 20 ML IV ONE (09:36)
[2017-01-17] MEDS: ALLOPURINOL 100 MG TAB PO SCH (10:00)
[2017-01-17] MEDS: ZINC SULFATE 220 MG CAP PO SCH (10:00)
[2017-01-17] MEDS: MONTELUKAST SODIUM 10 MG TAB PO SCH (10:00)
[2017-01-17] MEDS: PANTOPRAZOLE 40 MG TAB PO SCH (10:00)
[2017-01-17] MEDS: GABAPENTIN 400 MG CAP PO SCH ×2 (10:00→22:14)
[2017-01-17] MEDS: ASCORBIC ACID 500 MG TAB PO SCH ×2 (10:00→21:47)
[2017-01-17] MEDS: MULTIPLE VITAMIN TAB PO SCH (10:00)
[2017-01-17] MEDS: predniSONE 20 MG TAB PO SCH (10:00)
[2017-01-17] MEDS: BUDESONIDE (INHALATION) 0.5 MG/2 ML NEB NEB SCH ×3 (10:00→21:58)
[2017-01-17] MEDS ORDERED: KETOROLAC TROMETH 30 MG/ML 1ML VIAL ONE (10:18)
[2017-01-17] MEDS ORDERED: HYDROmorphone HCL 2 MG/ML VL ONE (10:28)
[2017-01-17] MEDS ORDERED: ACCU-CHEK COMFORT CURVE STRIP VI ONE (10:30)
[2017-01-17] MEDS ORDERED: LABETALOL HCL 5 MG/ML 4ML SYRINGE IV PRN (10:30)
[2017-01-17] MEDS ORDERED: ONDANSETRON HCL 4 MG/2 ML VIAL IV ONE (10:30)
[2017-01-17] MEDS ORDERED: hydrALAZINE HCL 20 MG/ML VL IV PRN (10:30)
[2017-01-17] MEDS ORDERED: MIDAZOLAM HCL 1MG/1ML-2 ML VIAL IV PRN (10:30)
[2017-01-17] MEDS ORDERED: ePHEDrine SULFATE 50 MG/ML AMP IV PRN (10:30)
[2017-01-17] MEDS ORDERED: KETOROLAC TROMETH 30 MG/ML 1ML VIAL IV ONE (10:30)
[2017-01-17] MEDS: HYDROmorphone HCL 2 MG/ML VL IV PRN ×4 (10:33→11:03)
[2017-01-17] MEDS: cefTRIAXone 1GM/50ML D5W 50 ML IV SCH (12:58)
[2017-01-17 13:00] VITALS: BP 137/75
[2017-01-17 17:00] VITALS: BP 154/79
[2017-01-17] MEDS: ATORVASTATIN 20 MG TAB PO SCH (21:46)
[2017-01-17 22:00] VITALS: BP 168/81
[2017-01-18] MEDS: MORPHINE SULFATE 4 MG/ML SYRG IV PRN ×2 (00:55→05:32)
[2017-01-18] MEDS: ONDANSETRON HCL 4 MG/2 ML VIAL IV PRN ×3 (00:56→12:10)
[2017-01-18] MEDS: ALBUTEROL SULF 2.5 MG/0.5ML(0.5%) NEB SOLN NEB SCH ×3 (02:28→11:24)
[2017-01-18] MEDS: IPRATROPIUM BROM 0.5 MG/2.5ML INH SOL NEB SCH ×3 (02:28→11:24)
[2017-01-18 05:00] VITALS: BP 157/80
[2017-01-18] MEDS: metroNIDAZOLE 500MG/100ML 100 ML IV SCH ×2 (05:01→14:00)
[2017-01-18] MEDS: SODIUM CHLOR 0.9% PF (SALINE LOCK) 10ML VIAL IV SCH ×2 (05:02→13:58)
[2017-01-18] MEDS: cloNIDine HCL 0.1 MG TAB PO SCH ×2 (05:31→13:57)
[2017-01-18] MEDS: BUDESONIDE (INHALATION) 0.5 MG/2 ML NEB NEB SCH (07:08)
[2017-01-18 08:00] VITALS: BP 139/82
[2017-01-18] MEDS: ASCORBIC ACID 500 MG TAB PO SCH (09:10)
[2017-01-18] MEDS: LOSARTAN POTASSIUM 50 MG TAB PO SCH ×2 (09:10→18:00)
[2017-01-18] MEDS: PANTOPRAZOLE 40 MG TAB PO SCH (09:10)
[2017-01-18] MEDS: MULTIPLE VITAMIN TAB PO SCH (09:11)
[2017-01-18] MEDS: GABAPENTIN 400 MG CAP PO SCH (09:11)
[2017-01-18] MEDS: MONTELUKAST SODIUM 10 MG TAB PO SCH (09:11)
[2017-01-18] MEDS: predniSONE 20 MG TAB PO SCH (09:11)
[2017-01-18] MEDS: ZINC SULFATE 220 MG CAP PO SCH (09:12)
[2017-01-18] MEDS: ALLOPURINOL 100 MG TAB PO SCH (09:12)
[2017-01-18] MEDS: HYDROcodone-ACET 5/325MG TAB PO PRN (09:13)
[2017-01-18 09:18] VITALS: BP 139/82
[2017-01-18] MEDS ORDERED: HYDR-4663 PO (10:30)
[2017-01-18] MEDS: LORazepam 0.5 MG TAB PO PRN (12:12)
[2017-01-18 13:00] VITALS: BP_SYST 156; BP_SYST 161; BP_DIAS 72; BP_DIAS 80
[2017-01-18] MEDS: cefTRIAXone 1GM/50ML D5W 50 ML IV SCH (13:57)
[2017-01-18 17:03] VITALS: BP 138/66
== END 2017-01-18 18:30 | disposition home or self-care (01) | DRG 263 ==
LOC: ER 13:03 → OVERFLOW 13:04 → WEST WING 21:15
PROVIDERS: ADMIT Internal Medicine; ATTEND Internal Medicine
PROC: 0FT44ZZ Resection of Gallbladder, Percutaneous Endoscopic Approach (ICD-10-PCS; principal; 2017-01-17 09:26)
DX: K80.10 Calculus of gallbladder with chronic cholecystitis without obstruction (principal); E43 Unspecified severe protein-calorie malnutrition; I27.2 Other secondary pulmonary hypertension; I13.0 Hypertensive heart and chronic kidney disease with heart failure and stage 1 through stage 4 chronic kidney disease, or unspecified chronic kidney disease; N39.0 Urinary tract infection, site not specified; I50.9 Heart failure, unspecified; Z68.43 Body mass index [BMI] 50.0-59.9, adult; I10 Essential (primary) hypertension; J45.909 Unspecified asthma, uncomplicated; M19.90 Unspecified osteoarthritis, unspecified site; E78.5 Hyperlipidemia, unspecified; J44.9 Chronic obstructive pulmonary disease, unspecified; N18.9 Chronic kidney disease, unspecified; E66.01 Morbid (severe) obesity due to excess calories; I25.10 Atherosclerotic heart disease of native coronary artery without angina pectoris; Z86.73 Personal history of transient ischemic attack (TIA), and cerebral infarction without residual deficits; Z87.442 Personal history of urinary calculi; Z90.49 Acquired absence of other specified parts of digestive tract; Z79.899 Other long term (current) drug therapy; Z82.49 Family history of ischemic heart disease and other diseases of the circulatory system; Z81.8 Family history of other mental and behavioral disorders; Z80.1 Family history of malignant neoplasm of trachea, bronchus and lung; Z83.2 Family history of diseases of the blood and blood-forming organs and certain disorders involving the immune mechanism; Z84.89 Family history of other specified conditions; Z87.891 Personal history of nicotine dependence
CPT/HCPCS: 36415; 71010; 76705; 80048; 80053; 81001; 81025; 82150; 82247; 83690; 84702; 85025; 85610; 86850; 86900; 86901; 87040; 87086; 93005; 94640; 96361; 96374; 96375; C9113; J0330; J0690; J0696; J1100; J1885; J2250; J2405; J2704; J3490

== ENCOUNTER 2017-01-29 10:41 | Emergency (ER) | payer MEDICAID ==
[~2017-01-29] VITALS: Ht 160 cm; Wt 132.9 kg
[~2017-01-29 10:41] MED LIST changes: +HYDR-4663 PO
[2017-01-29] MEDS ORDERED: ALBUTEROL SULF 2.5 MG/0.5ML(0.5%) NEB SOLN NEB STA (10:56)
[2017-01-29] MEDS ORDERED: IPRATROPIUM BROM 0.5 MG/2.5ML INH SOL NEB ONE ×2 (11:00→11:30)
[2017-01-29] MEDS ORDERED: ALBUTEROL SULF 2.5 MG/0.5ML(0.5%) NEB SOLN NEB ONE (11:30)
[2017-01-29] MEDS ORDERED: methylPREDNISolone SOD SUCC 125 MG/2 ML VL IM ONE (11:30)
[2017-01-29 12:12] LABS: Basophils # (auto) 0.1 uL; Basophils % (auto) 0.5 % (0.0-2.0); CONDITION Y; Eosinophils # (auto) 0.6 uL; Hematocrit 40.3 % (36.0-46.0); Hemoglobin 13.6 g/dL (12.2-16.2); Lymphocytes # (auto) 2.7 uL; Lymphocytes % (auto) 18.3 % (10.0-50.0); Mean Corpuscular Hemoglobin 31.5 pg (28.0-32.0); Mean Corpuscular Hgb Conc. 33.9 g/dL (32.0-36.0); Mean Corpuscular Volume 93.1 fL (80.0-100.0); Mean Platelet Volume 7.4 fL (7.4-10.4); Monocytes # (auto) 0.6 uL; Monocytes % (auto) 4.3 % (0.0-12.0); Neutrophils # (auto) 10.8 uL; Neutrophils % (auto) 72.9 % (37.0-80.0); Platelet Count (auto) 317 10^3/uL (140-450); Red Cell Distribution Width 13.5 % (11.6-16.0); White Blood Cell 14.9 10^3/uL (4.4-10.8)
[2017-01-29 12:30] VITALS: BP 151/96
[2017-01-29 12:37] LABS: Alkaline Phosphatase 81 U/L (45-117); Anion Gap 6 (5-15); Aspartate Aminotransferase 12 U/L (15-37); BUN/Creatinine Ratio 10.8; Bilirubin, Total 0.5 mg/dL (0.2-1.0); Blood Urea Nitrogen 9 mg/dL (7-18); Carbon Dioxide 24 mmol/L (21-32); Chloride 108 mmol/L (98-107); GFR African American 98 mL/min; GFR Non-African American 81 mL/min; Glucose 95 mg/dL (74-106); Potassium 4.1 mmol/L (3.5-5.1); Sodium 138 mmol/L (136-145); Total Protein 7.3 g/dL (6.4-8.2)
[2017-01-29 12:40] LABS: B-Type Natriuretic Peptide 15.46 pg/mL (0-100)
[2017-01-29 12:57] LABS: Temperature: 24.3 C (20.0-25.0)
[2017-01-29 13:19] LABS: INR 0.91 (0.9-1.15); Partial Thromboplastin Time 25.4 sec (22.64-33.71); Prothrombin Time 9.9 sec (9.37-12.3)
== END 2017-01-29 12:53 | disposition home or self-care (01) ==
LOC: ER 10:41
DX: J44.9 Chronic obstructive pulmonary disease, unspecified (principal); I50.9 Heart failure, unspecified; I11.0 Hypertensive heart disease with heart failure; E78.5 Hyperlipidemia, unspecified; F12.10 Cannabis abuse, uncomplicated; Z87.442 Personal history of urinary calculi; Z90.49 Acquired absence of other specified parts of digestive tract; Z98.51 Tubal ligation status; Z87.891 Personal history of nicotine dependence
CPT/HCPCS: 36415; 71010; 80053; 83880; 84484; 85025; 85610; 85730; 93005; 94640

== ENCOUNTER 2017-02-13 04:31 | Emergency (ER) | payer MEDICAID ==
[~2017-02-13] VITALS: Ht 160 cm; Wt 149.7 kg
[2017-02-13] MEDS ORDERED: SODIUM CHLORIDE 0.9% 1,000 ML IV ONE ×2 (06:15→07:36)
[2017-02-13] MEDS ORDERED: HYDROmorphone HCL 2 MG/ML VL IV ONE (06:15)
[2017-02-13] MEDS ORDERED: ONDANSETRON HCL 4 MG/2 ML VIAL IV ONE (06:15)
[2017-02-13 06:50] LABS: Basophils # (auto) 0.1 uL; Basophils % (auto) 0.8 % (0.0-2.0); CONDITION Y; Eosinophils # (auto) 0.3 uL; Eosinophils % (auto) 2.9 % (0.0-7.0); Hematocrit 44.5 % (36.0-46.0); Lymphocytes # (auto) 2.1 uL; Lymphocytes % (auto) 19.4 % (10.0-50.0); Mean Corpuscular Hemoglobin 31.2 pg (28.0-32.0); Mean Corpuscular Hgb Conc. 33.8 g/dL (32.0-36.0); Mean Corpuscular Volume 92.3 fL (80.0-100.0); Monocytes # (auto) 0.7 uL; Monocytes % (auto) 6.2 % (0.0-12.0); Neutrophils # (auto) 7.7 uL; Neutrophils % (auto) 70.7 % (37.0-80.0); Platelet Count (auto) 366 10^3/uL (140-450); Red Cell Distribution Width 13.6 % (11.6-16.0); White Blood Cell 10.9 10^3/uL (4.4-10.8)
[2017-02-13 06:53] LABS: Urine Bilirubin Negative (Negative); Urine Blood TRACE /uL (Negative); Urine Color Yellow (Yellow); Urine Glucose Normal (Normal); Urine Ketone Negative (Negative); Urine Nitrite Negative (Negative); Urine RBC 2 /hpf (0 - 4); Urine Squamous Epithelial Cell FEW /hpf (<5); Urine Urobilinogen Normal (Negative)
[2017-02-13 07:20] LABS: Alkaline Phosphatase 88 U/L (45-117); Anion Gap 11 (5-15); Aspartate Aminotransferase 17 U/L (15-37); BUN/Creatinine Ratio 14.3; Blood Urea Nitrogen 13 mg/dL (7-18); Carbon Dioxide 22 mmol/L (21-32); Chloride 108 mmol/L (98-107); GFR African American 89 mL/min; GFR Non-African American 73 mL/min; Glucose 106 mg/dL (74-106); Sodium 141 mmol/L (136-145)
[2017-02-13 07:21] LABS: Albumin 3.4 g/dL (3.4-5.0); Amylase 65 U/L (25-115); Bilirubin, Total 0.4 mg/dL (0.2-1.0); Calcium 8.9 mg/dL (8.5-10.1); Magnesium 2.1 mg/dL (1.6-2.6); Total Protein 7.7 g/dL (6.4-8.2)
[2017-02-13] MEDS ORDERED: ALBUTEROL SULF 2.5 MG/0.5ML(0.5%) NEB SOLN NEB ONE (08:15)
[2017-02-13] MEDS ORDERED: IPRATROPIUM BROM 0.5 MG/2.5ML INH SOL NEB ONE (08:15)
[2017-02-13] MEDS ORDERED: IPRATROPIUM BROM 0.5 MG/2.5ML INH SOL ONE (08:23)
[2017-02-13] MEDS ORDERED: ALBUTEROL SULF 2.5 MG/0.5ML(0.5%) NEB SOLN ONE (08:23)
[2017-02-13 09:52] LABS: B-Type Natriuretic Peptide 27.22 pg/mL (0-100)
[2017-02-13 09:57] LABS: Temperature: 23.3 C (20.0-25.0)
[2017-02-13 13:22] VITALS: BP 148/74
== END 2017-02-13 13:53 | disposition home or self-care (01) ==
LOC: EDBD 04:31 → ER 04:33
DX: R10.13 Epigastric pain (principal); R11.2 Nausea with vomiting, unspecified; E66.01 Morbid (severe) obesity due to excess calories; R41.89 Other symptoms and signs involving cognitive functions and awareness; I50.9 Heart failure, unspecified; I11.0 Hypertensive heart disease with heart failure; Z68.43 Body mass index [BMI] 50.0-59.9, adult; J44.9 Chronic obstructive pulmonary disease, unspecified; I25.10 Atherosclerotic heart disease of native coronary artery without angina pectoris; E78.5 Hyperlipidemia, unspecified; Z90.49 Acquired absence of other specified parts of digestive tract; Z87.442 Personal history of urinary calculi; Z88.6 Allergy status to analgesic agent; Z98.51 Tubal ligation status; F12.10 Cannabis abuse, uncomplicated; Z79.82 Long term (current) use of aspirin; Z79.899 Other long term (current) drug therapy; Z86.73 Personal history of transient ischemic attack (TIA), and cerebral infarction without residual deficits
CPT/HCPCS: 36415; 71020; 80053; 81001; 82150; 83690; 83735; 83880; 84443; 84484; 84702; 85025; 93005; 94640; 94761; 96361; 96374; 96375; 99285; J1170; J2405; J7030

== ENCOUNTER 2017-03-01 15:19 | Emergency (ER) | payer MEDICAID ==
[2017-03-01] MEDS ORDERED: EPINEPHrine HCL 1 MG/10 ML SYRG ONE (15:31)
[2017-03-01] MEDS ORDERED: EPINEPHrine HCL 1 MG/10 ML SYRG IV ONE ×3 (16:00→19:16)
[2017-03-01] MEDS ORDERED: CALCIUM CHLOR(10%) 100MG/ML 10ML SYRINGE IV ONE (19:15)
[2017-03-01] MEDS ORDERED: SODIUM BICARBONATE 8.4% INJ 50ML SYRINGE IV ONE (19:16)
== END 2017-03-01 22:02 | disposition expired ==
LOC: EDUNIT# 15:19 → EDSEX 15:26 → ER 15:26
DX: I46.9 Cardiac arrest, cause unspecified (principal); I25.119 Atherosclerotic heart disease of native coronary artery with unspecified angina pectoris; I11.0 Hypertensive heart disease with heart failure; I50.9 Heart failure, unspecified; J44.9 Chronic obstructive pulmonary disease, unspecified; E78.5 Hyperlipidemia, unspecified; Z88.8 Allergy status to other drugs, medicaments and biological substances
CPT/HCPCS: 92950; 99285; J0171